=== PATIENT | female | born 1990 ===

== ENCOUNTER → 2018-09-14 23:45 | Outpatient (REF) | payer OTHER, SELFPAY ==
[2018-09-14 23:52] LABS: RBC Urine None Seen (0-5/HPF); WBC Urine None Seen (0-5/HPF)
[2018-09-15 02:31] LABS: Appearance Urine UA CLEAR; Bilirubin Urine UA NEGATIVE (NEGATIVE); Glucose Urine UA NEGATIVE (Negative); Ketones Urine UA NEGATIVE (NEGATIVE); Leukocyte Esterase Urine UA NEGATIVE (NEGATIVE); Nitrite Urine UA NEGATIVE (Negative); Occult Blood Urine UA NEGATIVE (Negative); Protein Urine UA NEGATIVE (Negative); Specific Gravity Urine UA <=1.005 (1.000-1.035); Urobilinogen Urine UA 0.2 E.U./dL (0.2); pH Urine UA 6.5 (4.5-8.0)
[2018-09-15 02:32] LABS: Color Urine UA Straw
[2018-09-15 02:33] LABS: Bacteria Urine Occasional (0-1); Culture Indicated Urine Cult Not Indicated; Squamous Epithelial Cell Urine 1-5 /HPF (0-5/HPF)
[2018-09-15 03:08] LABS: Vitamin D 25 Hydroxy (D3) 45.5 ng/mL (30.0-100.0)
[2018-09-15 03:36] LABS: Ferritin 33.6 ng/mL (6.27-137)
[2018-09-15 04:07] LABS: Vitamin B12 817 pg/mL (239-931)
[2018-09-18 16:24] LABS: C.albicans IgA 1.8; C.albicans IgG 0.8; C.albicans IgM 1.6 (<1.0)
[2018-09-19 07:37] LABS: EBV Virus IgM Ab < 36.00 U/mL (< 36.00)
== END ==
LOC: LAB 23:45
PROVIDERS: Visit Provider Naturopath
DX: R10.9 Unspecified abdominal pain (principal); R53.83 Other fatigue; R14.1 Gas pain; R19.7 Diarrhea, unspecified; K58.0 Irritable bowel syndrome with diarrhea; B27.00 Gammaherpesviral mononucleosis without complication
CPT/HCPCS: 36415; 81001; 82306; 82607; 82728; 82746; 86628; 86663; 86664; 86665